=== PATIENT | female | born 1990 | race Caucasian/White ===

== ENCOUNTER 2020-09-07 09:33 | Outpatient (REF) | payer OTHER, SELFPAY ==
[2020-09-07 10:35] LABS: COVID-19 Test Negative (Negative)
== END 2020-09-07 09:34 | disposition home or self-care (01) ==
LOC: HO.EMPCOV 09:33
PROVIDERS: Visit Provider Internal Medicine
DX: Z20.828 Contact with and (suspected) exposure to other viral communicable diseases (principal)
CPT/HCPCS: 87635; C9803

== ENCOUNTER → 2022-07-06 13:12 | Outpatient (RCR) | payer OTHER, SELFPAY | END | disposition home or self-care (01) | LOC: HO.EMPCOV 08-26 11:47 | PROVIDERS: Visit Provider Internal Medicine | DX: Z20.828 Contact with and (suspected) exposure to other viral communicable diseases (principal) ==